=== PATIENT | male | born 2000 | race Two or more races ===

== ENCOUNTER 2025-07-06 20:58 | Emergency (ER) | payer MEDICAID, OTHER ==
[~2025-07-06] VITALS: Ht 175.3 cm; Wt 109.5 kg
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
[2025-07-06] MEDS ORDERED: METH4PAK PO (23:19)
[2025-07-06] MEDS ORDERED: TIZA-142 PO (23:19)
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
[2025-07-06 23:26] VITALS: BP 140/92; PULSE 80; RESP 19; TEMP 98; O2SAT 95
== END 2025-07-06 23:26 | disposition home or self-care (01) ==
LOC: ER 20:58
DX: S13.4XXA Sprain of ligaments of cervical spine, initial encounter (principal); G44.309 Post-traumatic headache, unspecified, not intractable; M25.521 Pain in right elbow; V86.55XA Driver of 3- or 4- wheeled all-terrain vehicle (ATV) injured in nontraffic accident, initial encounter; Y93.I9 Activity, other involving external motion; Y92.488 Other paved roadways as the place of occurrence of the external cause; Y99.8 Other external cause status
CPT/HCPCS: 70450; 72125